=== PATIENT | female | born 1970 | race Caucasian/White ===

== ENCOUNTER 2022-06-23 05:29 | Outpatient (CLI) | payer OTHER ==
[~2022-06-23] VITALS: Ht 167.7 cm; Wt 118.6 kg
== END 2022-06-23 17:04 | disposition home or self-care (01) ==
LOC: PREOP 05:29
PROVIDERS: ATTEND Podiatrist Foot & Ankle Surgery
DX: Z01.818 Encounter for other preprocedural examination (principal)

== ENCOUNTER 2022-06-25 05:59 | Day surgery (SDC) | payer BC, OTHER ==
[~2022-06-25] VITALS: Ht 167.7 cm; Wt 118.6 kg
[2022-06-25] VITALS (12 sets, daily range): BP systolic 112–132; BP diastolic 59–79
[2022-06-25] MEDS: LACTATED RINGERS 1,000 ML IV PRN ×2 (06:34→08:25)
[2022-06-25] MEDS ORDERED: ceFAZolin INJECTION 1,000 MG in NS (IVPB) 50 ML IV ONE (06:45)
[2022-06-25] MEDS ORDERED: FAMOTIDINE 20MG/2ML IV (PEPCID) IVP ONE (07:15)
[2022-06-25] MEDS ORDERED: ONDANSETRON 4 MG/2 ML (SDV) Z0FRAN IVP ONE (07:15)
[2022-06-25] MEDS ORDERED: SCOPOLAMINE 1.5 MG (TRANSDERM-SCOP) PATCH TD ONE (07:15)
[2022-06-25] MEDS ORDERED: ONDANSETRON 4 MG/2 ML (SDV) Z0FRAN ONE ×2 (07:17→07:46)
[2022-06-25] MEDS ORDERED: SCOPOLAMINE 1.5 MG (TRANSDERM-SCOP) PATCH ONE (07:17)
[2022-06-25] MEDS ORDERED: FAMOTIDINE 20MG/2ML IV (PEPCID) ONE (07:18)
[2022-06-25] MEDS ORDERED: LIDOCAINE 1% INJ 20 ML VIAL ONE (07:22)
[2022-06-25] MEDS ORDERED: BUPIVACAINE 0.5% 30 ML (SENSORCAINE) VIAL ONE (07:22)
[2022-06-25] MEDS ORDERED: MIDAZOLAM 2 MG/2 ML (VERSED) VIAL ONE (07:46)
[2022-06-25] MEDS ORDERED: proPOfol 200 MG/20 ML (DIPRIVAN) VIAL IV ONE ×2 (07:46→08:40)
[2022-06-25] MEDS ORDERED: LIDOCAINE PF 2% 5 ML (XYLOCAINE) VIAL ONE (07:46)
[2022-06-25] MEDS ORDERED: fentaNYL INJ 100 MCG/2 ML AMP ONE (07:46)
--- NOTE | 2022-06-25 07:50 | Progress Note-Pre Operative ---
Pre-Operative Progress Note Date of Available H&P: June 25, 2022 Date H&P Reviewed: June 25, 2022 Time H&P Reviewed: 07:35 Pre-Operative Diagnosis: Tailor's bunion, 5th hammertoes, right foot VAHID DIAZ DPM June 25, 2022 07:50
[2022-06-25] MEDS ORDERED: SEVOFLURANE (ULTANE) 15 ML INHAL SOLN ONE (09:10)
--- NOTE | 2022-06-25 09:17 | Progress Note-Post Operative ---
Post-Operative Progess Note Surgeon (s)/Field Reimbursement Manager (s) Surgeon VAHID DIAZ DPM Field Reimbursement Manager: none Pre-Operative Diagnosis Tailor's bunion, 5th hammertoes, right foot Post-Operative Diagnosis Same Procedure & Operative Findings Date of Procedure 06/25/22 Procedure Performed/Findings 5th metatarsal osteotomy (tailors bunionectomy), hammertoe reduction 5th, right Anesthesia Type General Estimated Blood Loss Estimated blood loss (mL): Minimal Specimens/Packing Specimens Removed None VAHID DIAZ DPM June 25, 2022 09:16
[2022-06-25] MEDS ORDERED: ACHD5005 PO ×2 (09:19)
[2022-06-25] MEDS ORDERED: ONDANSETRON 4 MG/2 ML (SDV) Z0FRAN IVP PRN (09:30)
[2022-06-25] MEDS ORDERED: morphine INJ 10 MG/ML 1ML (SYR OR VIAL) IVP ONE (09:30)
[2022-06-25] MEDS ORDERED: LACTATED RINGERS 1,000 ML IV SCH (10:15)
[2022-06-25] MEDS ORDERED: HYDROcodone/APAP 5 MG/325 MG (LORTAB) TAB PO PRN (10:15)
[2022-06-25] MEDS ORDERED: BUPIVACAINE 0.25% 30 ML (SENSORCAINE) VIAL ONE (10:27)
--- NOTE | 2022-06-25 11:06 | Anesthesia-General Post-Op ---
General Patient Condition Mental Status/LOC: Same as Preop Cardiovascular: Satisfactory Nausea/Vomiting: Absent Respiratory: Satisfactory Pain: Controlled Complications: Absent Post Op Complications Complications None Follow Up Care/Instructions Patient Instructions None needed. Anesthesia/Patient Condition Patient Condition Patient is doing well, no complaints, stable vital signs, no apparent adverse anesthesia problems. No complications reported per nursing. MARYAM JOSHI DO June 25, 2022 11:06
--- NOTE | 2022-06-25 11:40 | Diagnostic Imaging Report ---
INDICATION: Postoperative evaluation COMPARISON: None available. TECHNIQUE: 2 radiographs of the right foot dated 06/25/2022. FINDINGS: 2 screws are identified involving the distal shaft of the 5th metatarsal. This is transfixing a fracture versus postsurgical changes. No evidence of immediate hardware complication. Truncation of the distal aspect of the 5th digit proximal phalanx is present. No additional fracture or dislocation. Moderate sized plantar calcaneal enthesophyte. No suspicious radiopaque foreign body. Scattered degenerative changes, greatest involving the 1st MTP joint. IMPRESSION: 2 screws transfixing a fracture versus postsurgical changes involving the distal shaft of the 5th metatarsal without hardware complication. Truncation of the distal aspect of the 5th digit proximal phalanx. This is nonspecific. This may be postsurgical in nature. Septic 5th PIP joint not totally excluded though felt less likely. Dictated by: Dictated on workstation # [id number]
--- NOTE | 2022-06-25 12:45 | OPERATIVE REPORT ---
DATE OF SERVICE: 06/25/2022 SURGEON: Gia Lopez DPM. PREOPERATIVE DIAGNOSES: 1. Tailor's bunion, right foot. 2. Hammer digit syndrome, right fifth toe. 3. Subluxed right fifth metatarsophalangeal joint. POSTOPERATIVE DIAGNOSES: 1. Tailor's bunion, right foot. 2. Hammer digit syndrome, right fifth toe. 3. Subluxed right fifth metatarsophalangeal joint. PROCEDURES: 1. Tailor's bunionectomy (reverse Sherwin) with screw fixation, right. 2. Reduction of fifth hammertoe, right. WOUND CLASS: Clean. ANESTHESIA: General. HEMOSTASIS: Pneumatic thigh tourniquet at 300 mmHg. INDICATIONS: This is a 52-year-old female who presents complaining of painful right foot. She has had foot surgery in the past in this same area. Unfortunately, there is some pain and swelling, which upon review of x-rays, there is a subluxation of the right fifth metatarsophalangeal joint. Conservative therapy is met with unsatisfactory results and the patient is agreeable to surgical intervention after risks and complications were discussed at length. No guarantees were extended to the patient and she is willing to proceed. DESCRIPTION OF PROCEDURE: The patient was brought back to the operating table and placed in secure supine position. General anesthetic was then induced. Appropriate timeout was performed. The right foot was anesthetized utilizing aseptic technique, utilizing 10 mL of 1:1 mixture of 1% lidocaine and 0.5% Marcaine in a reverse Garcia block. The right foot was then prepped and draped in normal sterile manner. The right foot was then elevated, allowed to exsanguinate after which the thigh tourniquet was inflated to 300 mmHg. Attention was then directed to the dorsal aspect of the right fifth metatarsophalangeal joint where a 5 cm longitudinal linear incision was created. The incision was deepened in same plane with great care to identify and retract all vital neurovascular structures. Only necessary blood vessels were cauterized as encountered. The incision was deepened down to the capsular tissue where a longitudinal capsulotomy was performed just lateral to the extensor digitorum longus tendon. This exposed the hypertrophic fifth metatarsal head where there was a reduction of the irregular lateral eminence to the fifth metatarsal head. Next, utilizing a power sagittal saw, a Chevron type osteotomy was performed with a long dorsal arm. This allowed the capital fragment to translocate medially and was temporarily fixated in its corrected position with two 0.045 K-wires. Next, utilizing standard technique, two 2.0 snap-off screws of 14 mm of length were applied from dorsal to plantar across the osteotomy securing the fifth metatarsal head in its corrected position. This meant that the temporary K-wire was removed as the screw fixation was applied. Excellent bony apposition and fixation was appreciated. The wound was flushed with copious amounts of normal saline. The distal diaphysis was further contoured and smoothed with a power sagittal saw and a power bur. The wound was flushed with copious amounts of normal saline. After this maneuver, the base of the fifth toe came into a fairly good alignment with the head of the fifth metatarsal. An arthroplasty was performed to the right fifth toe. Skin incision was created from distal medial to proximal lateral where 2 semi-elliptical incisions were created overlying the proximal interphalangeal joint. Once the skin was removed, dissection was carried out to the dorsal aspect of the extensor digitorum tendon where a transverse tenotomy was performed as well as a release of the medial collateral ligaments overlying the proximal interphalangeal joint. The hypertrophic head of the proximal phalanx was then resected with a power sagittal saw. The area was flushed with copious amounts of normal saline and the wound was repaired in layers. Deep closure was performed with 3-0 Vicryl, superficial with 4-0 Vicryl and skin closure with 4-0 Prolene in a horizontal mattress type stitch. Due to the orientation of the skin incision, the toe was derotated and was no longer tucked up underneath the fourth digit. We used intraoperative C-arm to confirm placement of the internal fixation for the fifth metatarsal osteotomy. Excellent bony apposition and fixation was visualized and improved alignment. Closure for the remainder of the wound was performed. Deep closure was performed with 3-0 Vicryl, superficial with 4-0 Vicryl, skin closure with 4-0 Prolene in a horizontal mattress type stitch to the all incisions. Postoperative injection consisted of 10 mL of 0.5% Marcaine injected in a local infusion to the surgical site. Postoperative dressing consisted of Betadine-soaked Adaptic, sterile 4 x 4's, sterile Kerlix, all secured with a Coban wrap. The patient tolerated the anesthesia and procedure well and was transported from the operating room to the recovery room with vital signs stable and vascular status intact to all digits of the right foot. She is to be absolutely nonweightbearing on the right lower extremity with heel contact for balance and transfers only. She was given a prescription for Vicodin as well as Keflex. We will see her in the office in 10 days' period of time or sooner if necessary. Job ID: [id number] DocumentID: [id number] Dictated Date: 06/25/2022 09:30:51 Parts Sales Associate Date: 06/25/2022 12:43:00 Dictated By: MAGDALENA ROBISON
== END 2022-06-25 12:33 | disposition home or self-care (01) ==
LOC: SDC 05:59
PROVIDERS: ATTEND Podiatrist Foot & Ankle Surgery
DX: M21.621 Bunionette of right foot (principal); M20.41 Other hammer toe(s) (acquired), right foot; S93.149A Subluxation of metatarsophalangeal joint of unspecified toe(s), initial encounter; G47.33 Obstructive sleep apnea (adult) (pediatric); E66.01 Morbid (severe) obesity due to excess calories; Z99.81 Dependence on supplemental oxygen; Z68.41 Body mass index [BMI] 40.0-44.9, adult; Y99.9 Unspecified external cause status
CPT/HCPCS: 28110; 28285; 73620; 87081; C1713 ×2

== ENCOUNTER → 2022-08-06 | Outpatient (CLI) | payer OTHER ==
[~2022-08-06] MED LIST: ACHD5005 PO
[2022-08-06 10:00] LABS: BASOPHILS % (AUTO) 1 % (0-10); EOSINOPHILS # (AUTO) 0.1 10^3/uL (0.0-0.3); EOSINOPHILS % (AUTO) 2 % (0-10); HEMATOCRIT 42 % (35-52); HEMOGLOBIN 13.9 g/dL (11.5-16.0); LYMPHOCYTES # (AUTO) 1.8 10^3/uL (1.0-4.0); LYMPHOCYTES % (AUTO) 37 % (12-44); MEAN CORPUSCULAR HEMOGLOBIN 31 pg (25-34); MEAN CORPUSCULAR HGB CONC 33 g/dL (32-36); MEAN CORPUSCULAR VOLUME 92 fL (80-99); MEAN PLATELET VOLUME 9.6 fL (9.0-12.2); MONOCYTES # (AUTO) 0.3 10^3/uL (0.0-1.0); MONOCYTES % (AUTO) 7 % (0-12); NEUTROPHILS # (AUTO) 2.7 10^3/uL (1.8-7.8); NEUTROPHILS % (AUTO) 54 % (42-75); PLATELET COUNT 281 10^3/uL (130-400)
[2022-08-06 10:09] LABS: POTASSIUM 4.4 MMOL/L (3.6-5.0)
[2022-08-06 10:10] LABS: CALCIUM 9.2 MG/DL (8.5-10.1)
[2022-08-06 10:11] LABS: TOTAL PROTEIN 6.6 GM/DL (6.4-8.2)
[2022-08-06 10:13] LABS: BILIRUBIN,TOTAL 0.3 MG/DL (0.1-1.0)
[2022-08-06 10:15] LABS: CREATININE SERUM 0.96 MG/DL (0.60-1.30)
[2022-08-06 10:39] LABS: FREE T4 (FREE THYROXINE) 0.78 NG/DL (0.70-1.48)
== END ==
LOC: LAB 09:37
PROVIDERS: ATTEND Internal Medicine
DX: Z00.00 Encounter for general adult medical examination without abnormal findings (principal); E03.9 Hypothyroidism, unspecified; D64.9 Anemia, unspecified; E78.1 Pure hyperglyceridemia; E78.00 Pure hypercholesterolemia, unspecified; R73.9 Hyperglycemia, unspecified
CPT/HCPCS: 36415; 80053; 80061; 82728; 83036; 83540; 83550; 84439; 84443; 85025

== ENCOUNTER → 2022-10-06 | Outpatient (CLI) | payer OTHER ==
[2022-10-06 11:30] LABS: CLARITY,URINE CLEAR; COLOR,URINE YELLOW
[2022-10-06 11:31] LABS: BACTERIA,URINE NEGATIVE /HPF; BILIRUBIN,URINE NEGATIVE (NEGATIVE); GLUCOSE, URINE (UA) NEGATIVE (NEGATIVE); KETONES,URINE NEGATIVE (NEGATIVE); LEUKOCYTE ESTERASE ,URINE NEGATIVE (NEGATIVE); NITRITE,URINE NEGATIVE (NEGATIVE); PROTEIN,URINE NEGATIVE (NEGATIVE); RBC,URINE RARE /HPF; SQUAMOUS EPITHELIAL CELL,UR 0-2 /HPF
== END ==
LOC: LAB 11:09
PROVIDERS: ATTEND Internal Medicine
DX: R35.0 Frequency of micturition (principal)
CPT/HCPCS: 81000

== ENCOUNTER → 2022-12-13 | Outpatient (CLI) | payer OTHER ==
[2022-12-13 10:32] LABS: ALBUMIN 3.9 GM/DL (3.2-4.5); BILIRUBIN,TOTAL 0.3 MG/DL (0.1-1.0); CALCIUM 8.5 MG/DL (8.5-10.1); CREATININE SERUM 0.8 MG/DL (0.60-1.30); POTASSIUM 4.4 MMOL/L (3.6-5.0); TOTAL PROTEIN 6.4 GM/DL (6.4-8.2)
[2022-12-13 10:54] LABS: FREE T4 (FREE THYROXINE) 0.93 NG/DL (0.70-1.48)
== END ==
LOC: LAB 09:55
PROVIDERS: ATTEND Internal Medicine
DX: Z00.00 Encounter for general adult medical examination without abnormal findings (principal); E78.00 Pure hypercholesterolemia, unspecified; E78.1 Pure hyperglyceridemia; E03.9 Hypothyroidism, unspecified
CPT/HCPCS: 36415; 80053; 82465; 84439; 84443; 84478